=== PATIENT | male | born 1950 | race Caucasian/White ===

== ENCOUNTER 2017-04-01 20:02 | Outpatient (CLI) | payer MEDICARE | END 2017-04-01 20:03 | disposition EMS.NT | LOC: EMS 20:02 | PROVIDERS: ATTEND Surgery | DX: Z04.1 Encounter for examination and observation following transport accident (principal); V47.5XXA Car driver injured in collision with fixed or stationary object in traffic accident, initial encounter; Y92.410 Unspecified street and highway as the place of occurrence of the external cause ==

== ENCOUNTER 2019-12-23 11:04 | Outpatient (CLI) | payer MEDICARE ==
--- NOTE | 2019-12-24 08:14 | Ultrasound Report ---
PROCEDURE: Aorta Screening INDICATIONS: ENCOUNTER FOR SCREENING FOR CARDIOVASCULAR DISORDE TECHNIQUE: Real time scanning was performed of the aorta and iliac arteries, with image documentatio n. COMPARISON: None FINDINGS: Aorta: Proximal aortic diameter measures 2.6 x 2.8 cm. Mid-aorta measures 2.6 x 2.7 cm. Distal aor tic diameter is 2.5 x 2.1 cm. Diffuse atherosclerotic plaques. Iliac arteries: Right common iliac artery measures 1.5 cm. Left common iliac artery measures 1.5 cm . IMPRESSION: Ectatic abdominal aorta measuring up to 2.8 cm. Recommend a follow-up ultrasound in 5 years. Reviewed by: Huma Murphy MD on 12/24/2019 8:13 AM PDT Approved by: Huma Murphy MD on 12/24/2019 8:13 AM PDT Station ID: [id number]
== END 2019-12-23 11:05 | disposition home or self-care (01) ==
LOC: DI 11:04
PROVIDERS: ATTEND Internal Medicine
DX: Z13.6 Encounter for screening for cardiovascular disorders (principal); I77.811 Abdominal aortic ectasia
CPT/HCPCS: 76706

== ENCOUNTER 2020-06-16 08:17 | Outpatient (CLI) | payer MEDICARE ==
--- NOTE | 2020-06-16 13:11 | Ultrasound Report ---
PROCEDURE: Arterial Visceral Complete INDICATIONS: HTN TECHNIQUE: Real time scanning was performed of both kidneys, followed by Color and pulsed Doppler in terrogation of the renal vessels. COMPARISON: Correlation is made with the aortic screening ultrasound, 12/23/2019. FINDINGS: Aortic peak systolic velocity: 113 cm/s. Right side: Machado-scale imaging: Kidney is 4.8 cm long; renal cortical thickness is 1.9 cm. No hydronephrosis. No nephrolithiasis. Renal cortex is normal in echogenicity. No suspicious solid renal masses. A du plex collecting system is noted. Proximal renal artery peak systolic velocity: 260 cm/s. Mid renal artery peak systolic velocity: 200 cm/s. Distal renal artery peak systolic velocity: 96 cm/s. Renal vein: Patent, without thrombus. Peak renal/aortic ratio (RAR): 2.3 Left side: Machado-scale imaging: Kidney is 12.5 cm long; renal cortical thickness is 1.9 cm. No hydronephrosis. No nephrolithiasis. Renal cortex is normal in echogenicity. No suspicious solid renal masses. Proximal renal artery peak systolic velocity: 156 cm/s. Mid-renal artery peak systolic velocity: 141 cm/s. Distal renal artery peak systolic velocity: 50 cm/s. Renal vein: Patent, without thrombus. Peak renal/aortic ratio (RAR): 1.4 IMPRESSION: There is borderline stenosis of the right proximal renal artery. Reviewed by: Jerzy Reis MD on 06/16/2020 12:09 PM [facility] Approved by: Jerzy Reis MD on 06/16/2020 12:09 PM [facility] Station ID: [id number]
== END 2020-06-16 08:18 | disposition home or self-care (01) ==
LOC: DI 08:17
PROVIDERS: ATTEND Internal Medicine
DX: I70.1 Atherosclerosis of renal artery (principal)
CPT/HCPCS: 93975

== ENCOUNTER 2020-06-26 10:41 | Emergency (ER) | payer MEDICARE ==
[2020-06-26] MEDS ORDERED: ASPIRIN CHEW 81 MG TABLET PO STA (11:02)
--- NOTE | 2020-06-26 11:05 | ED Physician Documentation ---
History of Present Illness - Stated complaint Stated Complaint: CHEST PAIN - Chief complaint Chief Complaint: Cardiac - History obtained from History obtained from: Patient - Additonal information Additional information: 70-year-old gentleman with history of hypertension. He was started on amlodipine and hydrochlorothiazide a little over a week ago by his primary care physician, Dr. Patel. Hydrochlorothiazide made him constipated and worsened his restless leg syndrome despite increasing oral fluids. He stopped the hydrochlorothiazide yesterday. He has noticed some very mild chest pressure o deidre the last few days which was more notable this morning. He is pain-free right now. There is no associated radiation or shortness of breath. No pedal edema. No calf pain. Review of Systems Ten Systems: 10 systems reviewed and negative Constitutional: denies: Fatigue Cardiac: denies: Palpitations, Pedal edema, Calf pain Respiratory: denies: Dyspnea, Cough PD PAST MEDICAL HISTORY - Present Medications Home Medications: Ambulatory Orders Medication Instructions Recorded Confirmed Gabapentin [Neurontin] 300 mg PO HS 06/26/20 06/26/20 Lisinopril [Zestril] 10 mg PO DAILY #30 tablet 06/26/20 Ropinirole HCl [Requip Xl] 2 mg PO DAILY 06/26/20 06/26/20 amLODIPine [Norvasc] 10 mg PO DAILY 06/26/20 06/26/20 hydroCHLOROthiazide [Hydrodiuril] 12.5 mg PO DAILY 06/26/20 06/26/20 - Allergies Allergies/Adverse Reactions: Allergies Allergy/AdvReac Type Severity Reaction Status Date / Time No Known Drug Allergies Allergy Verified 06/26/20 11:00 PD ED PE NORMAL - Vitals Vital signs reviewed: Yes - General General: Alert and oriented X 3, No acute distress - HEENT HEENT: PERRL, EOMI - Neck Neck: Supple, no meningeal sign, No bony TTP - Cardiac Cardiac: RRR, No murmur - Respiratory Respiratory: No respiratory distress, Clear bilaterally - Abdomen Abdomen: Non tender - Derm Derm: Normal color, Warm and dry - Extremities Extremities: No edema, No calf tenderness / cord - Neuro Neuro: Alert and oriented X 3, Normal speech Results - Vitals Vitals: Vital Signs - 24 hr 06/26/20 06/26/20 10:56 11:06 Temperature 36.4 C L Heart Rate 85 80 Respiratory 19 10 L Rate Blood Pressure 187/90 H 181/115 H O2 Saturation 99 98 Oxygen O2 Source Room air - EKG (time done) 1046 Rate: Rate (enter#) (90) Rhythm: NSR, LAE [place]: RAD Intervals: Normal UT Ischemia: Non specific changes. No: ST elevation c/w ischemia, ST depression Computer interpretation: Agree with computer - Labs Labs: Laboratory Tests 06/26/20 06/26/20 06/26/20 10:55 10:55 10:55 WBC 8.7 RBC 6.06 Hgb 17.6 Hct 52.2 H MCV 86.1 MCH 29.0 MCHC 33.7 RDW 13.9 Plt Count 182 MPV 11.5 H Neut # (Auto) 5.3 Lymph # (Auto) 2.5 Bureau # (Auto) 0.7 Eos # (Auto) 0.1 Baso # (Auto) 0.1 Absolute Nucleated RBC 0.00 Nucleated RBC % 0.0 Sodium 139 Potassium 3.6 Chloride 97 L Carbon Dioxide 31 Anion Gap 11.0 BUN 19 Creatinine 0.9 Estimated GFR (MDRD) 83 L Glucose 143 H Calcium 10.0 Magnesium 2.4 Total Bilirubin 0.6 AST 30 ALT 40 Alkaline Phosphatase 66 Troponin I High Sens 9.0 Total Protein 8.0 Albumin 4.3 Globulin 3.7 Albumin/Globulin Ratio 1.2 Lipase 59 H - Rads (name of study) 1v chest Radiology: EMP read contemporaneously (normal) PD MEDICAL DECISION MAKING - ED course ED course: HEART score 3 70-year-old gentleman presents with atypical chest pain in the setting of some side effects from new blood pressure medicine and elevated blood pressures. His blood pressure drifted down without specific intervention here. Heart score is 3. Nothing in the history or physical to suggest PE or dissection. Departure - Departure Disposition: 01 Home, Self Care Clinical Impression: Chest pain Qualifiers: Chest pain type: unspecified Qualified Code(s): R07.9 - Chest pain, unspecified Condition: Good Record reviewed to determine appropriate education?: Yes Instructions: ED Chest Pain Atypical Unkn Cause Prescriptions: Lisinopril [Zestril] 10 mg PO DAILY #30 tablet Comments: You can stop the hydrochlorothiazide and substitute the lisinopril instead. Take it with you when you see Dr. Patel in 2 days for recheck and return if worsening. Continue other medications.
[2020-06-26 11:08] LABS: BASOPHILS # (AUTO) 0.1 10^3/uL (0.0-0.1); BASOPHILS % (AUTO) 1.2 %; EOSINOPHILS # (AUTO) 0.1 10^3/uL (0.0-0.7); EOSINOPHILS % (AUTO) 1.3 %; HGB - HEMOGLOBIN 17.6 g/dL (14.0-18.0); LYMPHOCYTES # (AUTO) 2.5 10^3/uL (1.5-3.5); LYMPHOCYTES % (AUTO) 28.7 %; MEAN CORPUSCULAR HGB CONC 33.7 g/dL (32.0-36.0); MEAN CORPUSCULAR VOLUME 86.1 fL (80.0-94.0); MEAN PLATELET VOLUME 11.5 fL (7.4-11.4); MONOCYTES # (AUTO) 0.7 10^3/uL (0.0-1.0); MONOCYTES % (AUTO) 8.1 %; NEUTROPHILS # (AUTO) 5.3 10^3/uL (1.5-6.6); NEUTROPHILS % (AUTO) 60.5 %; PLT - PLATELET COUNT 182 10^3/uL (130-450); RED BLOOD COUNT 6.06 10^6/uL (4.70-6.10); RED CELL DISTRIBUTION WIDTH 13.9 % (12.0-15.0); WHITE BLOOD COUNT 8.7 x10^3/uL (4.8-10.8)
[2020-06-26 11:09] VITALS: BP 181/115
--- OUTSIDE RECORDS SUMMARY | 2020-06-26 11:09 | EXTERNAL MEDICAL SUMMARY RPT | Continuity of Care Document ---
:1950 Demographics Phone Unavailable Preferred Language Unknown Marital Status Unknown Presybeterian Affiliation Unknown Race Unknown Ethnic Group Unknown Author Organization [place] Address [address] [phone] Phone Care Team Providers Name Role Phone Patel Unavailable Unavailable [place] Unavailable Unavailable Problems date description facility 2014-07-23 14:15 CHEST PAIN NOS [facility] 2019-12-23 11:04 ABDOMINAL AORTIC ECTASIA [facility] 2019-12-23 11:04 [facility] CARDIOVASCULAR DISORDERS 2020-06-16 08:17 ESSENTIAL (PRIMARY) HYPERTENSION [facility] 2020-06-16 08:30 ESSENTIAL (PRIMARY) HYPERTENSION [facility] Social History date description facility [id number]
[2020-06-26 11:18] LABS: ALBUMIN 4.3 g/dL (3.2-5.5); ALBUMIN/GLOBULIN RATIO 1.2 (1.0-2.2); BILIRUBIN,TOTAL 0.6 mg/dL (0.2-1.0); CREATININE 0.9 mg/dL (0.6-1.2); MAGNESIUM 2.4 mg/dL (1.7-2.8)
--- NOTE | 2020-06-26 11:26 | XRAY Report ---
PROCEDURE: Chest 1 View X-Ray INDICATIONS: cp TECHNIQUE: One view of the chest was acquired. COMPARISON: None FINDINGS: Surgical changes and devices: None. Lungs and pleura: No pleural effusions or pneumothorax. Lungs are clear. Mediastinum: Mediastinal contours appear normal. Heart size is normal. Bones and chest wall: No suspicious bony lesions. Overlying soft tissues appear unremarkable. IMPRESSION: No acute pulmonary process. Reviewed by: Frida Monteiro MD on 06/26/2020 11:25 AM [facility] Approved by: Frida Monteiro MD on 06/26/2020 11:25 AM [facility] Station ID: [id number]
== END 2020-06-26 12:14 | disposition home or self-care (01) ==
LOC: ED 10:41
DX: R07.89 Other chest pain (principal); I10 Essential (primary) hypertension; G25.81 Restless legs syndrome
CPT/HCPCS: 36415; 71045; 80053; 83690; 83735; 84484; 85025; 93005; 99284; A9270

== ENCOUNTER 2020-07-11 08:58 | Outpatient (CLI) | payer MEDICARE ==
--- NOTE | 2020-07-11 16:34 | Ultrasound Report ---
PROCEDURE: Bladder INDICATIONS: DECREASED STREAM TECHNIQUE: Sonographic images of the bladder were obtained. COMPARISON: None. FINDINGS: Prevoid volume 3 57 cc, post void residual 1 29 cc. Prostate measures 3.3 x 2.4 x 3.0 cm. Volume brenda ures 12.4 cc. Bilateral ureteral jets are identified. No stones or masses are identified. No abnormal wall thickness. IMPRESSION: Mildly prominent prostate gland. Reviewed by: Frida Monteiro MD on 07/11/2020 4:33 PM [facility] Approved by: Frida Monteiro MD on 07/11/2020 4:33 PM [facility] Station ID: [id number]
== END 2020-07-11 08:59 | disposition home or self-care (01) ==
LOC: DI 08:58
PROVIDERS: ATTEND Internal Medicine
DX: R33.8 Other retention of urine (principal)

== ENCOUNTER 2020-09-12 09:06 | Emergency (ER) | payer MEDICARE ==
--- NOTE | 2020-09-12 09:43 | ED Physician Documentation ---
PD HPI CHEST PAIN - Stated complaint Stated Complaint: CHEST PX/HEAD PRESSURE - Chief complaint Chief Complaint: Cardiac - History obtained from History obtained from: Patient - History of Present Illness Timing - onset: Enter time (0500), Today Timing - onset during: Light activity Timing - duration: Hours (3) Timing - details: Gradual onset, Now resolved Pain level max: 7 Pain level now: 0 Quality: Aching, Sharp Location: Substernal, Left chest Radiation: Other (developed pressure headache at max pain). No: Jaw, Neck, Back, Abdominal, Left upper extremity, Right upper extremity Improved by: Other (ibuprofen) Worsened by: Other (nothing). No: Exertion, Inspiration, Palpation Associated symptoms: Diaphoresis. No: Shortness of air, Nausea, Vomiting, Feeling faint / dizzy, General Weakness, Palpitations, Cough Similar symptoms before: Diagnosis (chest wall pain) Recently seen: Not recently seen - Additional information Additional information: 70-year-old male generally healthy with history of hypertension presents to the emergency department again this morning with chest pain that began about 5 AM. He states he got up and was fine initially and developed the discomfort in his chest in the left PACs which he describes as aching sensation without modifying factor. He states that he went out to put a transmission into his car and this did not alter the pain in any way he did not get short of breath he did get a bit diaphoretic at the maximum of his pain and he denies any radiation of the pain he does state that he developed a little bit of a headache that was a pressure-like sensation. He took some ibuprofen and has come to the hospital and in route to the hospital his pain lessened. It is now resolved. He reports that he worked out yesterday similar to what happened to him about 1 week ago when he had a similar incident that lasted less time. His family history is negative for coronary disease he has a history of hypertension he has had a treadmill test done about 1 year ago which she indicates he passed easily. He has been put onto hydrochlorothiazide earlier in the year and this resulted in him not being able to urinate and developing some chest pressure. He was evaluated here in the emergency department. Review of Systems Constitutional: denies: Fever Eyes: denies: Decreased vision Ears: denies: Ear pain Nose: denies: Congestion Throat: denies: Sore throat Cardiac: reports: Chest pain / pressure. denies: Palpitations, Pedal edema, Calf pain Respiratory: denies: Dyspnea, Cough GI: denies: Abdominal Pain, Nausea, Vomiting, Constipation, Diarrhea : denies: Dysuria, Frequency Skin: denies: Rash Musculoskeletal: denies: Neck pain, Back pain, Extremity pain Neurologic: denies: Generalized weakness, Focal weakness, Numbness PD PAST MEDICAL HISTORY - Past Medical History Cardiovascular: Hypertension - Past Surgical History Past Surgical History: Yes Ortho: Spine surgery - Present Medications Home Medications: Ambulatory Orders Medication Instructions Recorded Confirmed Gabapentin [Neurontin] 300 mg PO HS 06/26/20 09/12/20 Ropinirole HCl [Requip Xl] 2 mg PO DAILY 06/26/20 09/12/20 amLODIPine [Norvasc] 10 mg PO DAILY 06/26/20 09/12/20 Losartan [Cozaar] 50 mg PO DAILY 09/12/20 09/12/20 - Allergies Allergies/Adverse Reactions: Allergies Allergy/AdvReac Type Severity Reaction Status Date / Time No Known Drug Allergies Allergy Verified 06/26/20 11:00 - Social History Does the pt smoke?: Yes Smoking Status: Current every day smoker Does the pt drink ETOH?: No Does the pt have substance abuse?: No - Immunizations Immunizations are current?: Yes - POLST Patient has POLST: No PD ED PE NORMAL - Vitals Vital signs reviewed: Yes (hypertensive minimal ) - General General: No acute distress, Well developed/nourished - HEENT HEENT: Atraumatic, PERRL, EOMI - Neck Neck: Supple, no meningeal sign, No bony TTP - Cardiac Cardiac: RRR, No murmur - Respiratory Respiratory: No respiratory distress, Clear bilaterally - Abdomen Abdomen: Soft, Non tender - Back Back: No CVA TTP, No spinal TTP - Derm Derm: Normal color, Warm and dry, No rash - Extremities Extremities: No deformity, No edema - Neuro Neuro: Alert and oriented X 3, intake manager 2-12 intact, No motor deficit, No sensory deficit, Normal speech Eye Opening: Spontaneous Motor: Obeys Commands Verbal: Oriented GCS Score: 15 - Psych Psych: Normal mood, Normal affect Results - Vitals Vitals: Vital Signs - 24 hr 09/12/20 09/12/20 09/12/20 09:10 09:16 10:21 Temperature 36.5 C Heart Rate 57 L 65 63 Respiratory 17 20 16 Rate Blood Pressure 139/62 H 143/77 H 193/91 H O2 Saturation 99 99 97 Oxygen O2 Source Room air - EKG (time done) 0913 Rate: Rate (enter#) (58) Rhythm: MESERET Ischemia: ST elevation c/w ischemia (inferior leads subtle maybe not real) Compare to prior EKG: Changed from prior EKG (SPT the subtle ST elevations in inferior leads has occurred. ) - Labs Labs: Laboratory Tests 09/12/20 09/12/20 09/12/20 09:20 09:20 09:20 WBC 7.7 RBC 5.00 Hgb 14.5 Hct 42.9 MCV 85.8 MCH 29.0 MCHC 33.8 RDW 14.7 Plt Count 185 MPV 11.4 Neut # (Auto) 6.4 Lymph # (Auto) 0.8 L Bacon # (Auto) 0.3 Eos # (Auto) 0.0 Baso # (Auto) 0.1 Absolute Nucleated RBC 0.00 Nucleated RBC % 0.0 Sodium 138 Potassium 3.9 Chloride 100 L Carbon Dioxide 25 Anion Gap 13.0 BUN 19 Creatinine 0.9 Estimated GFR (MDRD) 83 L Glucose 145 H Calcium 9.6 Total Bilirubin 0.8 AST 25 ALT 31 Alkaline Phosphatase 57 Troponin I High Sens 813.3 H* Total Protein 7.4 Albumin 4.0 Globulin 3.4 Albumin/Globulin Ratio 1.2 Lipase 33 - Rads (name of study) chest Radiology: Prelim report reviewed (Impression: Stable examination of the chest without acute cardiopulmonary abnormalities. No focal airspace disease.), EMP read indepedently, See rad report Procedures - IVC sono (time) 0935 Bedside IVC sono: IVC measures (cm) (1.74), IVC collapsed c insp (cm) (0.92), Euvolemia PD MEDICAL DECISION MAKING - ED course Complexity details: reviewed old records, reviewed results, re-evaluated patient, considered differential, d/w patient ED course: Previously well 70-year-old male with a history of hypertension has developed a an episode of chest pain today that came on during rest of and did not have any modifying factors. He is arguing that this is likely a musculoskeletal issue as he has had similar symptoms after working out and he did workout yesterday. He has had some improvement with use of ibuprofen. His electrocardiogram shows some subtle changes from a prior electrocardiogram obtained earlier in the year and work-up is ensued.Work-up shows a elevated troponin consistent with myocardial ischemia. Cardiology at [facility] is consulted in the case. Dr. Mcfarlane graciously agrees to accept the patient in transfer and recommends aspirin and heparin. A respiratory PCR was obtained to rule out coronavirus in order to provide the appropriate bed for the patient at the transfer receiving hospital. Departure - Departure Disposition: 02 Transfer Acute Care Hosp Clinical Impression: NSTEMI (non-ST elevated myocardial infarction) Condition: Stable
[2020-09-12 09:52] LABS: BASOPHILS # (AUTO) 0.1 10^3/uL (0.0-0.1); BASOPHILS % (AUTO) 0.9 %; EOSINOPHILS % (AUTO) 0.3 %; HCT - HEMATOCRIT 42.9 % (42.0-52.0); HGB - HEMOGLOBIN 14.5 g/dL (14.0-18.0); LYMPHOCYTES # (AUTO) 0.8 10^3/uL (1.5-3.5); LYMPHOCYTES % (AUTO) 10.3 %; MEAN CORPUSCULAR HGB CONC 33.8 g/dL (32.0-36.0); MEAN CORPUSCULAR VOLUME 85.8 fL (80.0-94.0); MEAN PLATELET VOLUME 11.4 fL (7.4-11.4); MONOCYTES # (AUTO) 0.3 10^3/uL (0.0-1.0); MONOCYTES % (AUTO) 4.1 %; NEUTROPHILS # (AUTO) 6.4 10^3/uL (1.5-6.6); NEUTROPHILS % (AUTO) 84.1 %; PLT - PLATELET COUNT 185 10^3/uL (130-450); RED CELL DISTRIBUTION WIDTH 14.7 % (12.0-15.0); WHITE BLOOD COUNT 7.7 x10^3/uL (4.8-10.8)
--- NOTE | 2020-09-12 10:04 | XRAY Report ---
PROCEDURE: Chest 1 View X-Ray INDICATIONS: chest pain TECHNIQUE: One view of the chest was acquired. COMPARISON: 06/26/2020 FINDINGS: Surgical changes and devices: None. Lungs and pleura: No pleural effusions or pneumothorax. Lungs are clear. Mediastinum: Mediastinal contours appear normal. Heart size is normal. Bones and chest wall: No suspicious bony lesions. Overlying soft tissues appear unremarkable. IMPRESSION: Stable examination of the chest without acute cardiopulmonary abnormalities. No focal airspace diseas e. Reviewed by: Ramon Marc MD on 09/12/2020 10:03 AM PDT Approved by: Ramon Marc MD on 09/12/2020 10:03 AM PDT Station ID: [id number]
[2020-09-12 10:06] LABS: ALBUMIN/GLOBULIN RATIO 1.2 (1.0-2.2); BILIRUBIN,TOTAL 0.8 mg/dL (0.2-1.0); CALCIUM 9.6 mg/dL (8.5-10.3); CREATININE 0.9 mg/dL (0.6-1.2); POTASSIUM 3.9 mmol/L (3.5-5.0); TOTAL PROTEIN 7.4 g/dL (6.7-8.2)
[2020-09-12] MEDS ORDERED: ASPIRIN CHEW 81 MG TABLET PO STA (10:32)
[2020-09-12] MEDS ORDERED: HEPARIN 25000UNITS/500ML (D5W) 25,000 UNIT/500 ML BAG IV SCH (11:00)
[2020-09-12 11:27] VITALS: BP 169/71
[2020-09-12 11:51] LABS: B. PARAPERTUSSIS- RESP PCR PAN NOT DETECTED; B. PERTUSSIS- RESP PCR PANEL NOT DETECTED; C. PNEUMONIAE- RESP PCR PANEL NOT DETECTED; CORONAVIRUS 229E-RESP PCR NOT DETECTED; CORONAVIRUS HKU1-RESP PCR NOT DETECTED; CORONAVIRUS NL63-RESP PCR NOT DETECTED; CORONAVIRUS OC43-RESP PCR NOT DETECTED; HUMAN METAPNEUMOVIRUS NOT DETECTED; INFLUENZA A- RESP PCR PANEL NOT DETECTED; INFLUENZA B - RESP PCR PANEL NOT DETECTED; M. PNEUMONIAE- RESP PCR PANEL NOT DETECTED; PARAINFLUENZA VIRUS 1 NOT DETECTED; PARAINFLUENZA VIRUS 2 NOT DETECTED; PARAINFLUENZA VIRUS 3 NOT DETECTED; PARAINFLUENZA VIRUS 4 NOT DETECTED; RHINOVIRUS/ENTEROVIRUS NOT DETECTED; RSV- RESP PCR PANEL NOT DETECTED; SARS-CoV-2 -RESP PCR PANEL NOT DETECTED
--- OUTSIDE RECORDS SUMMARY | 2020-09-18 00:35 | EXTERNAL MEDICAL SUMMARY RPT | Continuity of Care Document ---
:1950 Demographics Phone Unavailable Preferred Language Unknown Marital Status Unknown Yarsanism Affiliation Unknown Race Unknown Ethnic Group Unknown Author Organization [place] Address [address] [phone] Phone Social History date description facility [phone]
== END 2020-09-12 11:59 | disposition short-term general hospital (02) ==
LOC: ED 09:06
DX: I21.4 Non-ST elevation (NSTEMI) myocardial infarction (principal); I10 Essential (primary) hypertension; F17.200 Nicotine dependence, unspecified, uncomplicated; Z20.822 Contact with and (suspected) exposure to COVID-19
CPT/HCPCS: 36415; 71045; 80053; 83690; 84484; 85025; 87631; 93005; 96374; 99284; 99285; A9270; 0202U

== ENCOUNTER 2020-09-12 12:03 | Outpatient (CLI) | payer MEDICARE ==
--- OUTSIDE RECORDS SUMMARY | 2020-09-18 01:21 | EXTERNAL MEDICAL SUMMARY RPT | Continuity of Care Document ---
:1950 Demographics Phone Unavailable Preferred Language Unknown Marital Status Unknown Jain Affiliation Unknown Race Unknown Ethnic Group Unknown Author Organization [place] Address [address] [place] [address] Phone Social History date description facility [phone]
== END 2020-09-12 12:04 | disposition short-term general hospital (02) ==
LOC: EMS 12:03
PROVIDERS: ATTEND Emergency Medicine
DX: I21.4 Non-ST elevation (NSTEMI) myocardial infarction (principal)
CPT/HCPCS: A0425; A0426

== ENCOUNTER 2022-06-28 12:48 | Outpatient (CLI) | payer MEDICARE ==
--- NOTE | 2022-06-28 18:19 | CT Report ---
PROCEDURE: Low Dose Lung Cancer Screen INDICATIONS: CURRENT SMOKER TECHNIQUE: Noncontrast low-dose axial images were acquired from the pulmonary apices to the posterior costophren ic angles. Multiplanar MIP reformats were then reconstructed. For radiation dose reduction, the follo wing was used: automated exposure control, adjustment of mA and/or kV according to patient size. COMPARISON: Correlation is made with chest radiograph, 09/12/2020. FINDINGS: Image quality: Excellent. Lungs and pleura: Within the right lower lobe, there is a rounded soft tissue nodule seen that measu res 3 mm, as on series 4 image 263. Within the left lower lobe, there is a 6 mm nodule, as on series 4 image 243. No definite additional pulmonary nodules are seen. No areas of pulmonary consolidation can be seen. The central airways are patent. No pleural effusions or pneumothorax can be seen. Mediastinum: Heart size is normal. No pericardial effusion. No mediastinal adenopathy by size crit eria. Thoracic aorta and central pulmonary arteries are normal in size. Atherosclerotic calcificatio n is seen, including moderate coronary artery calcification. Esophagus is normal in caliber. A smal l hiatal hernia is incidentally noted. hiatal hernia. Bones and chest wall: No suspicious bony lesions. No vertebral body compression fractures. No axil julieth or supraclavicular adenopathy by size criteria. The thyroid is normal in size and there are no incidental findings. Abdomen: Focal calcification can be seen within the right liver dome, as on series 3 images 53 and 5 4. Visualized upper abdomen solid organs and bowel loops appear normal in the absence of contrast. IMPRESSION: Bilateral lower lobe pulmonary nodules are seen, including a 6 mm nodule within the left lower lobe. Additional findings: Atherosclerotic calcification, including moderate coronary artery calcification Small hiatal hernia Right liver calcification, likely benign Lung RADS category: 3, probably benign Recommendation: 6-month follow-up low-dose noncontrast chest CT Reviewed by: Jerzy Reis MD on 06/28/2022 5:18 PM [facility] Approved by: Jerzy Reis MD on 06/28/2022 5:18 PM [facility] Station ID: [id number]
== END 2022-06-28 12:49 | disposition home or self-care (01) ==
LOC: DI 12:48
PROVIDERS: ATTEND Internal Medicine
DX: Z12.2 Encounter for screening for malignant neoplasm of respiratory organs (principal); R91.8 Other nonspecific abnormal finding of lung field; I25.10 Atherosclerotic heart disease of native coronary artery without angina pectoris; K44.9 Diaphragmatic hernia without obstruction or gangrene; F17.210 Nicotine dependence, cigarettes, uncomplicated

== ENCOUNTER 2023-05-31 09:18 | Outpatient (CLI) | payer MEDICARE ==
--- NOTE | 2023-05-31 14:27 | CT Report ---
PROCEDURE: Low Dose Lung Cancer Screen INDICATIONS: CURRENT SMOKER TECHNIQUE: A CT scan of the chest was performed. Intravenous contrast media was not administered. Images were re corded and evaluated at appropriate window settings. Reformats: axial MIP of the chest, coronal and s agittal. For radiation dose reduction, the following was used: automated exposure control, adjustment of mA and/or kV according to patient size. COMPARISON: None. FINDINGS: Image quality: Excellent. Prior cancer history: Unsure. Lungs and pleura: No pleural effusions. No pneumothorax. Stable solid pulmonary nodules. These inclu de: -4-5 mm solid nodule, left lower lobe (series 3, image 226). - 3 mm solid nodule, right lower lobe (series 3, image 212). Mediastinum: Heart size is normal. No pericardial effusion. No large vessel abnormality. No mediastin al adenopathy by size criteria. Three vessel coronary artery calcifications. Chest wall and lower neck: Thyroid is unremarkable. No axillary or supraclavicular adenopathy by size . Bones: No aggressive osseous abnormality. Upper Abdomen: Coarse calcification within the liver. IMPRESSION: Lung RAD: 2 - Benign. Recommendation: Continue annual screening in 12 Months with LDCT Non-Lung Significant Findings: Coronary Arterial Calcification - Moderate or Severe. Consider cardiol ogy referral. Reviewed by: Jonathon Fleming MD on 05/31/2023 2:25 PM PST Approved by: Jonathon Fleming MD on 05/31/2023 2:25 PM PST Station ID: [id number]
== END 2023-05-31 09:19 | disposition home or self-care (01) ==
LOC: DI 09:18
PROVIDERS: ATTEND Internal Medicine
DX: Z12.2 Encounter for screening for malignant neoplasm of respiratory organs (principal); F17.210 Nicotine dependence, cigarettes, uncomplicated; I25.10 Atherosclerotic heart disease of native coronary artery without angina pectoris; R91.8 Other nonspecific abnormal finding of lung field